=== PATIENT | female | born 1970 | race African-American/Black ===

== ENCOUNTER 2023-02-04 10:26 | Day surgery (SDC) | payer BC ==
[~2023-02-04 10:26] MED LIST: Lactated Ringers 1,000 ML IV SCH
[2023-02-04] MEDS ORDERED: fentaNYL 100 MCG/2 ML SDV ONE (11:20)
[2023-02-04] MEDS ORDERED: Propofol 200 MG/20 ML SDV ONE ×2 (11:20→12:27)
== END 2023-02-04 13:41 | disposition home or self-care (01) ==
LOC: VM.SDS 10:26
PROVIDERS: ATTEND Family Medicine
DX: Z12.11 Encounter for screening for malignant neoplasm of colon (principal); D12.0 Benign neoplasm of cecum; D12.3 Benign neoplasm of transverse colon; K59.01 Slow transit constipation; E66.9 Obesity, unspecified; Z90.710 Acquired absence of both cervix and uterus; Z87.59 Personal history of other complications of pregnancy, childbirth and the puerperium; Z68.28 Body mass index [BMI] 28.0-28.9, adult; Z79.899 Other long term (current) drug therapy
CPT/HCPCS: 00812; 45380; J2704; J3010; J7120